=== PATIENT | male | born 1965 | race Two or more races ===

== ENCOUNTER 2021-12-30 15:04 | Outpatient (CLI) | payer OTHER | END 2021-12-30 15:05 | disposition home or self-care (01) | LOC: LAB 15:04 | PROVIDERS: ATTEND Surgery | DX: R97.20 Elevated prostate specific antigen [PSA] (principal) ==

== ENCOUNTER 2022-01-18 07:37 | Outpatient (CLI) | payer OTHER | END 2022-01-18 07:46 | disposition home or self-care (01) | LOC: SONOGRAMA 07:37 | PROVIDERS: ATTEND Surgery | DX: R97.20 Elevated prostate specific antigen [PSA] (principal) ==